=== PATIENT | female | born 1985 | race Caucasian/White ===

== ENCOUNTER 2017-01-29 18:47 | Emergency (ER) | payer SELFPAY ==
[2017-01-29] MEDS ORDERED: Amoxicillin/Potassium Clav 875 MG TAB ONE (19:51)
[2017-01-29] MEDS ORDERED: Bacitracin Zinc 1 Packet ONE (19:53)
== END 2017-01-29 20:00 | disposition home or self-care (01) ==
LOC: MADERS 18:47
DX: S61.011A Laceration without foreign body of right thumb without damage to nail, initial encounter (principal); W54.0XXA Bitten by dog, initial encounter
CPT/HCPCS: 99283